=== PATIENT | male | born 1995 | race Caucasian/White ===

== ENCOUNTER 2023-02-19 20:14 | Emergency (ER) | payer OTHER ==
[~2023-02-19] VITALS: Ht 167.6 cm; Wt 79.4 kg
[2023-02-19 21:48] VITALS: BP 135/90
[2023-02-19] MEDS ORDERED: TETANUS/DIPHTHERIA TOXOID [ADULT] 0.5 ML VIAL IM ONE (22:00)
[2023-02-19] MEDS ORDERED: L.E.T. GEL 3ML SYG TP ONE (22:00)
== END 2023-02-19 22:57 | disposition home or self-care (01) ==
LOC: EDH 20:14 → EEVIPCON 20:14 → EDH 22:57
DX: S61.212A Laceration without foreign body of right middle finger without damage to nail, initial encounter (principal); W45.8XXA Other foreign body or object entering through skin, initial encounter; Y93.89 Activity, other specified; Y92.89 Other specified places as the place of occurrence of the external cause; Y99.8 Other external cause status
CPT/HCPCS: 12001; 90471; 90714